=== PATIENT | male | born 1985 | race African-American/Black ===

== ENCOUNTER 2017-09-10 08:31 | Emergency (ER) | payer OTHER ==
[2017-09-10] MEDS ORDERED: LIDOCAINE/EPI/TETRACAINE TOPICAL GEL 3 ML. TP (09:45)
== END 2017-09-10 11:10 | disposition home or self-care (01) ==
LOC: ER 08:31
DX: S01.91XA Laceration without foreign body of unspecified part of head, initial encounter (principal); W22.8XXA Striking against or struck by other objects, initial encounter; Y93.89 Activity, other specified; Y99.8 Other external cause status; Y92.89 Other specified places as the place of occurrence of the external cause
CPT/HCPCS: 12002; 12013; 70450; 99284-25